=== PATIENT | female | born 1970 | race Caucasian/White ===

== ENCOUNTER 2017-09-12 10:55 | Emergency (ER) | payer MEDICAID ==
[~2017-09-12] VITALS: Ht 160 cm; Wt 79.7 kg
[2017-09-12 11:01] VITALS: Ht 160 cm; Wt 79.7 kg
[2017-09-12] MEDS ORDERED: KETOROLAC 30 MG INJ IV STA (12:36)
[2017-09-12 13:23] LABS: ABNORMAL IP MESSAGE 1; BASOPHIL # 0.1 10^3/ul (0.0-0.1); BASOPHILS % 0.7 % (0.0-2.0); EOSINOPHILS # 0.1 10^3/ul (0.0-0.5); EOSINOPHILS % 1.1 % (0.0-7.0); HEMATOCRIT 31.3 % (37.0-47.0); HEMOGLOBIN 9.6 g/dl (12.0-16.0); LYMPHOCYTES % 27.1 % (15.0-51.0); MEAN CORPUSCULAR HEMOGLOBIN 21.6 pg (29.0-33.0); MEAN CORPUSCULAR HGB CONC 30.7 g/dl (32.0-37.0); MEAN CORPUSCULAR VOLUME 70.3 fl (82.0-101.0); MEAN PLATELET VOLUME 11.6 fl (7.4-10.4); MONOCYTE # 0.5 10^3/ul (0.3-0.9); MONOCYTES % 6.4 % (0.0-11.0); NEUTROPHIL # 4.7 10^3/ul (1.6-7.5); NEUTROPHILS % 64.4 % (39.0-77.0); PLATELET COUNT 244 10^3/UL (140-415); RED BLOOD COUNT 4.45 10^6/ul (4.20-5.40); WHITE BLOOD COUNT 7.3 10^3/ul (4.8-10.8)
[2017-09-12 13:29] LABS: POSITIVE DIFF @See below
--- NOTE | 2017-09-12 13:29 | RADRPT ---
PROCEDURE: XR Chest. CLINICAL INDICATION: Chest Pain. TECHNIQUE: Single frontal view of the chest was obtained COMPARISON: None FINDINGS: The heart and mediastinum are within normal limits. The lungs are clear. There is no pleural effusion or pneumothorax. The osseous structures are unremarkable. IMPRESSION: 1. No acute cardiopulmonary disease. RPTAT:AAJJ Physician Gio Date Time Electronically viewed and signed by Gabo Vela Physician on 09/12/2017 13:28 QL/
[2017-09-12 13:46] LABS: ANION GAP 15 (8-16); BLOOD UREA NITROGEN 9 mg/dl (7-20); CALCIUM 8.6 mg/dl (8.4-10.2); CARBON DIOXIDE 23 mmol/L (21-31); CHLORIDE 105 mmol/L (97-110); CREATININE 0.64 mg/dl (0.44-1.00); GLUCOSE 90 mg/dl (70-220); POTASSIUM 3.7 mmol/L (3.5-5.1); SODIUM 139 mmol/L (135-144)
[2017-09-12 13:58] LABS: TROPONIN-I < 0.012 ng/ml (0.00-0.12)
[2017-09-12] MEDS ORDERED: IBUP-1542 PO (14:06)
--- NOTE | 2017-09-12 14:07 | ERD ---
ER Documentation Chief Complaint Chief Complaint Pt with intermittent CP radiating to L arm, sob X 1 week, worst today. HPI Patient is a 46-year-old female with hypertension who presents with chest pain. She has had 1 week of left-sided chest pain which is constant. She says that she felt like her left arm fell asleep. She tried Tylenol and ibuprofen with minimal help. Upon review of old medical records this is the patient's first visit to the ER. Patient's primary doctor is Dr. Analia Henson. ROS All systems reviewed and are negative except as per history of present illness. Medications Home Meds Active Scripts Ibuprofen* (Motrin*) 600 Mg Tab, 600 MG PO Q6H Y for PAIN AND OR ELEVATED TEMP, #30 TAB Prov:JUSTINA SANDOVAL MD 09/12/17 Allergies Allergies: Coded Allergies: No Known Allergy (Unverified , 09/12/17) PMhx/Soc History of Surgery: Yes (Hysterectomy, Cholecystectomy) Anesthesia Reaction: No Hx Neurological Disorder: No Hx Respiratory Disorders: No Hx Cardiac Disorders: Yes (HTN) Hx Psychiatric Problems: No Hx Miscellaneous Medical Probl: No Hx Alcohol Use: No Hx Substance Use: No Hx Tobacco Use: No Smoking Status: Never smoker FmHx Family History: No coronary disease Physical Exam Vitals Vital Signs Date Time Temp Pulse Resp B/P Pulse Ox O2 Delivery O2 Flow Rate FiO2 09/12/17 14:20 63 17 107/66 100 Room Air 09/12/17 11:01 98.2 68 18 140/80 100 Physical Exam Const: No acute distress Head: Atraumatic Eyes: Normal Conjunctiva ENT: Normal External Ears, Nose and Mouth. Neck: Full range of motion..~ No meningismus. Resp: Clear to auscultation bilaterally Cardio: Regular rate and rhythm, no murmurs Abd: Soft, non tender, non distended. Normal bowel sounds Skin: No petechiae or rashes Back: No midline or flank tenderness Ext: No cyanosis, or edema, radial pulses 2+ bilaterally Neur: Awake and alert Psych: Normal Mood and Affect Result Diagram: 09/12/17 1301 09/12/17 1301 Results 24 hrs Laboratory Tests Test 09/12/17 13:01 White Blood Count 7.310^3/ul Red Blood Count 4.4510^6/ul Hemoglobin 9.6g/dl Hematocrit 31.3% Mean Corpuscular Volume 70.3fl Mean Corpuscular Hemoglobin 21.6pg Mean Corpuscular Hemoglobin Concent 30.7g/dl Red Cell Distribution Width 17.0% Platelet Count 32483^3/UL Mean Platelet Volume 11.6fl Neutrophils % 64.4% Lymphocytes % 27.1% Monocytes % 6.4% Eosinophils % 1.1% Basophils % 0.7% Nucleated Red Blood Cells % 0.0/100WBC Neutrophils # 4.710^3/ul Lymphocytes # 2.010^3/ul Monocytes # 0.510^3/ul Eosinophils # 0.110^3/ul Basophils # 0.110^3/ul Nucleated Red Blood Cells # 0.010^3/ul Sodium Level 139mmol/L Potassium Level 3.7mmol/L Chloride Level 105mmol/L Carbon Dioxide Level 23mmol/L Anion Gap 15 Blood Urea Nitrogen 9mg/dl Creatinine 0.64mg/dl Glucose Level 90mg/dl Calcium Level 8.6mg/dl Troponin I < 0.012ng/ml Current Medications Medications (Trade) Dose Ordered Sig/Kamille Route PRN Reason Start Time Stop Time Status Last Admin Dose Admin Ketorolac Tromethamine (Toradol) 30 mg ONCE STAT IV 09/12/17 12:36 09/12/17 12:37 DC 09/12/17 13:50 Procedures/MDM EKG read by me: Rate/Rhythm: Regular rate and rhythm at a rate of 61 Intervals: Normal Impression: No evidence of ischemia or arrhythmia Chest x-ray negative per radiology. Patient is a 46-year-old female with hypertension who presents with chest pain. She has had constant chest pain for 1 week and her troponin is negative. EKG is normal appearing with no signs of ST elevations or depressions. At this point I doubt acute coronary syndrome, pneumonia, pneumothorax, pulmonary embolism, or aortic dissection. I believe outpatient management is appropriate but the patient will need close follow-up with Dr. Henson within 24-48 hours. She can return sooner for any worsening symptoms. Departure Diagnosis: Primary Impression: Chest pain Chest pain type: unspecified Qualified Code: R07.9 - Chest pain, unspecified type Additional Impression: Anemia Anemia type: unspecified type Qualified Code: D64.9 - Anemia, unspecified type Condition: Fair Patient Instructions: Chest Pain, Uncertain Cause Referrals: ANALIA HENSON Additional Instructions: Llame al doctor MAANA y venkatesh antonio POLO PARA DENTRO DE 1-2 NG.Dgale a la secretaria que nosotros le instruimos hacer esta polo.Avise o llame si mcguire condicin se empeora antes de la polo. Regresa aqui si peor o no mejor. JUSTINA SANDOVAL MD Sep 12, 2017 14:07
[2017-09-12 14:20] VITALS: BP 107/66; PULSE 63; RESP 17
== END 2017-09-12 14:37 | disposition home or self-care (01) ==
LOC: E/R 10:55
DX: D64.9 Anemia, unspecified (principal); I10 Essential (primary) hypertension
CPT/HCPCS: 36415; 71010; 80048; 84484; 85025; 93005; 96374; J1885; Z7502